=== PATIENT | male | born 1980 | race Caucasian/White ===

== ENCOUNTER 2020-02-26 13:14 | Emergency (ER) | payer SELFPAY ==
[2020-02-26] MEDS ORDERED: Lidocaine 1% 10 ML MDV INJECT ONE (13:48)
--- NOTE | 2020-02-26 13:54 | EDM.PDOC ---
ED HPI GENERAL MEDICAL PROBLEM - General Chief Complaint: Skin Complaint Stated Complaint: STAPH INFECTION Time Seen by Provider: 02/26/20 13:38 Source of Information: Reports: Patient History Limitations: Reports: No Limitations - History of Present Illness INITIAL COMMENTS - FREE TEXT/NARRATIVE: Patient is a 39-year-old male who presents to the emergency department with complaints of a swollen, painful nodule in his left armpit. He states he first noticed it on Sunday and that it has been getting progressively larger and more painful. He has had abscesses in the past but denies a history of MRSA. Denies any fever, chills, nausea, or vomiting. Left Axillary Pain Score (Numeric/FACES): 5 - Related Data Allergies Allergy/AdvReac Type Severity Reaction Status Date / Time No Known Allergies Allergy Verified 02/26/20 13:40 Home Meds: Home Meds Acetaminophen/HYDROcodone [[place] 325-5 MG] 1 tab PO Q4H PRN #10 tablet 02/26/20 [Rx] Doxycycline [Vibramycin] 100 mg PO BID 10 Days #19 cap 02/26/20 [Rx] Past Medical History HEENT History: Reports: None Cardiovascular History: Reports: None Respiratory History: Reports: None Gastrointestinal History: Reports: None Genitourinary History: Reports: None Neurological History: Reports: None Psychiatric History: Reports: None Endocrine/Metabolic History: Reports: Obesity/BMI 30+ Hematologic History: Reports: None Immunologic History: Reports: None Oncologic (Cancer) History: Reports: None Dermatologic History: Reports: None - Infectious Disease History Infectious Disease History: Reports: None - Past Surgical History Musculoskeletal Surgical History: Reports: Other (See Below) Other Musculoskeletal Surgeries/Procedures:: tendon repair to one of pt's ankles. Social & Family History - Tobacco Use Smoking Status *Q: Current Every Day Smoker Years of Tobacco use: 20 Packs/Tins Daily: 1.5 - Caffeine Use Caffeine Use: Reports: Energy Drinks - Recreational Drug Use Recreational Drug Use: No ED ROS GENERAL - Review of Systems Review Of Systems: Comprehensive ROS is negative, except as noted in HPI. ED EXAM, SKIN/RASH Exam: See Below Exam Limited By: No Limitations General Appearance: Alert, WD/WN, No Apparent Distress Respiratory/Chest: No Respiratory Distress, Lungs Clear, Normal Breath Sounds, No Accessory Muscle Use, Chest Non-Tender Cardiovascular: Normal Peripheral Pulses, Regular Rate, Rhythm, No Edema, No Gallop, No JVD, No Murmur, No Rub Neurological: Alert, Oriented, CN II-XII Intact, Normal Cognition, Normal Gait, Normal Reflexes, No Motor/Sensory Deficits Psychiatric: Normal Affect, Normal Mood Skin: Warm, Dry, Intact, Other (4 cm erythematous, tender area of induration to the left axilla. It is firm to palpation. Surrounding tissue is erythematous but does not extend beyond the axilla.) ED SKIN PROCEDURES - I&D Site: left axilla Skin Prep: Providone-Iodine (Betadine) Local Anesthesia: Lidocaine: 1% Plain Local Anesthetic Volume: 5cc Area Incised With: 11 Blade Drainage: Purulent, Bloody, Large Amount Probed to Break Up Loculations: Yes Packed With: 1 in. Iodoform Sterile Dressing: Other (ABD pad) Complications: No Progress/Comments: Large amount of foul-smelling purulent drainage drained. Patient verbalized relief of pain. Course - Vital Signs Last Recorded V/S: Last Vital Signs Temp 97.9 F 02/26/20 13:38 Pulse 100 02/26/20 13:38 Resp 16 02/26/20 13:38 BP 165/101 H 02/26/20 13:38 Pulse Ox 97 02/26/20 13:38 - Orders/Labs/Meds Orders: Active Orders 24 hr Category Date Time Status CULTURE WOUND [RM] Stat Lab 02/26/20 14:10 Received Meds: Medications Discontinued Medications Generic Name Dose Route Start Last Admin Trade Name Rosa PRN Reason Stop Dose Admin Doxycycline Hyclate 100 mg 02/26/20 14:19 02/26/20 14:26 Vibramycin PO 02/26/20 14:20 100 mg ONETIME ONE Administration Lidocaine HCl 10 ml 02/26/20 13:48 02/26/20 13:57 Xylocaine 1% INJECT 02/26/20 13:49 10 ml ONETIME ONE Administration - Re-Assessments/Exams Free Text/Narrative Re-Assessment/Exam: 02/26/20 13:51 Bedside ultrasound performed and does show a hypoechoic area beneath the surface of the skin. I will be to I&D the abscess. See procedure notes. Departure - Departure Time of Disposition: 14:22 Disposition: Home, Self-Care 01 Condition: Fair Clinical Impression: Abscess - Discharge Information *PRESCRIPTION DRUG MONITORING PROGRAM REVIEWED*: No *COPY OF PRESCRIPTION DRUG MONITORING REPORT IN PATIENT CARLOS: No Prescriptions: Acetaminophen/HYDROcodone [[place] 325-5 MG] 1 tab PO Q4H PRN #10 tablet PRN Reason: Pain Doxycycline [Vibramycin] 100 mg PO BID 10 Days #19 cap Instructions: Skin Abscess Referrals: PCP,None [Primary Care Provider] - Forms: ED Department Discharge, ED Return to Work/School Form Additional Instructions: You were seen in the emergency department today for a painful, swollen, abscess in your left armpit. The abscess was surgically drained in the emergency department. Packing has been placed into the wound. Leave this in place for 2 days. After that time you may remove it by pulling on the tail that is hanging out of the wound. Keep the area covered with an absorbent pad as it will likely continue to drain over the next couple days. You been started on an antibiotic, doxycycline. Take this as prescribed. The drainage has been sent for culture. If this should grow out a microbe that is not susceptible to the antibiotic you are on, you will be notified and the medication will be changed. You may take [id number] Tylenol or ibuprofen as needed for pain. For pain not relieved by these measures, a prescription for [place] has been provided. Do not drive, work, or operate heavy machinery for 12 hours after taking this medication. I would like you to follow-up in the clinic early next week to have the wound rechecked. If over the weekend you experience any fever , chills, nausea, vomiting, or worsening of pain or swelling in that area, I would recommend that you return to the emergency department. Sepsis Event Note - Evaluation Sepsis Screening Result: No Definite Risk - Focused Exam Vital Signs: Vital Signs Temp Pulse Resp BP Pulse Ox 02/26/20 13:38 97.9 F 100 16 165/101 H 97 Date Exam was Performed: 02/26/20 Time Exam was Performed: 15:40 - My Orders Last 24 Hours: My Active Orders 02/26/20 14:10 CULTURE WOUND [RM] Stat - Assessment/Plan Last 24 Hours: My Active Orders 02/26/20 14:10 CULTURE WOUND [RM] Stat
[2020-02-26] MEDS ORDERED: Doxycycline 100 MG Cap PO ONE (14:19)
== END 2020-02-26 14:35 | disposition home or self-care (01) ==
LOC: JD.ED 13:14
DX: L02.412 Cutaneous abscess of left axilla (principal); E66.9 Obesity, unspecified; Z68.34 Body mass index [BMI] 34.0-34.9, adult; F17.210 Nicotine dependence, cigarettes, uncomplicated
CPT/HCPCS: 10061; 87070; 99283; A9270; J2001

== ENCOUNTER 2021-01-15 12:16 | Emergency (ER) | payer BC ==
[2021-01-15] MEDS ORDERED: FLU VACC QS2020-21(6MOS UP)/PF 60 MCG/0.5 ML SYRINGE IM ONE (13:00)
--- NOTE | 2021-01-15 13:58 | EDM.PDOC ---
ED HPI GENERAL MEDICAL PROBLEM - General Chief Complaint: Skin Complaint Stated Complaint: L UNDER ARM SKIN COMPLAINT Time Seen by Provider: 01/15/21 13:48 - History of Present Illness INITIAL COMMENTS - FREE TEXT/NARRATIVE: 40-year-old male presents the emergency room with a swollen tender area in his left armpit. Over the last week or so this is been developing skin to the point where it is difficult for him to position his arm because of skin pain in his axilla. Patient had a similar lesion like this drained this last summer. He had pretty good relief after that was done. Patient does not have a family history of th jacki in prior to the episode this last summer has not had any problems like this. The patient has not had any fevers or chills and other than the localized discomfort he has from the area is not having any dysfunction with his arm. Left Axillary Pain Score (Numeric/FACES): 8 - Related Data Allergies Allergy/AdvReac Type Severity Reaction Status Date / Time No Known Allergies Allergy Verified 01/15/21 12:41 Home Meds: Home Meds Acetaminophen/HYDROcodone [[place] 325-5 MG] 1 tab PO Q4H PRN #12 tablet 01/15/21 [Rx] Ibuprofen [Motrin] 200 mg PO QID PRN 01/15/21 [History] Past Medical History HEENT History: Reports: None Cardiovascular History: Reports: None Respiratory History: Reports: None Gastrointestinal History: Reports: None Genitourinary History: Reports: None Neurological History: Reports: None Psychiatric History: Reports: None Endocrine/Metabolic History: Reports: Obesity/BMI 30+ Hematologic History: Reports: None Immunologic History: Reports: None Oncologic (Cancer) History: Reports: None Dermatologic History: Reports: None Other Dermatologic History: cyst - Infectious Disease History Infectious Disease History: Reports: None - Past Surgical History Musculoskeletal Surgical History: Reports: Other (See Below) Other Musculoskeletal Surgeries/Procedures:: tendon repair to one of pt's ankles. Social & Family History - Family History Family Medical History: No Pertinent Family History - Tobacco Use Tobacco Use Status *Q: Current Every Day Tobacco User Years of Tobacco use: 24 Packs/Tins Daily: 1.5 - Caffeine Use Caffeine Use: Reports: Energy Drinks - Recreational Drug Use Recreational Drug Use: No ED ROS GENERAL - Review of Systems Review Of Systems: See Below Constitutional: Reports: No Symptoms. Denies: Fever, Chills Respiratory: Reports: No Symptoms Cardiovascular: Reports: No Symptoms GI/Abdominal: Reports: No Symptoms ED EXAM, SKIN/RASH Exam: See Below Exam Limited By: No Limitations General Appearance: Alert, No Apparent Distress Head: Atraumatic, Normocephalic Neck: Normal Inspection, Supple, Non-Tender, Full Range of Motion Respiratory/Chest: No Respiratory Distress, Lungs Clear, Normal Breath Sounds Cardiovascular: Regular Rate, Rhythm, No Edema, No Murmur Skin: Other (The patient has obvious hidradenitis suppurativa involving the left axilla right axilla appears fairly normal. Left is associated with significant scar tissue formation.) ED SKIN PROCEDURES - I&D Site: Left axilla Skin Prep: Providone-Iodine (Betadine) Local Anesthesia: Lidocaine: 1% Plain Local Anesthetic Volume: Other (8 cc of 1% lidocaine without epinephrine) Area Incised With: 15 Blade Drainage: Purulent, Bloody, Large Amount Probed to Break Up Loculations: Yes Packed With: 1/2 in. Iodoform (Approximately 4-1/2 inches placed inside the abscess cavity) Sterile Dressing: Other (See nursing notes) Complications: No Progress/Comments: 40 cc of saline were used to irrigate inside the abscess cavity. Course - Vital Signs Last Recorded V/S: Last Vital Signs Temp 36.5 C 01/15/21 12:37 Pulse 115 H 01/15/21 12:37 Resp 20 01/15/21 12:37 BP 160/95 H 01/15/21 12:37 Pulse Ox 92 L 01/15/21 12:37 - Orders/Labs/Meds Orders: Active Orders 24 hr Category Date Time Status Influenza Vaccine Charge [RC] .DISCHARGE Care 01/15/21 12:44 Active Meds: Medications Discontinued Medications Generic Name Dose Route Start Last Admin Trade Name Freq PRN Reason Stop Dose Admin Influenza Virus Vaccine 1 each 01/15/21 12:44 Pharmacy To Dose - Influenza Vaccine IM 01/15/21 12:45 ONETIME ONE Influenza Virus Vaccine 60 mcg 01/15/21 13:00 01/15/21 14:15 Fluzone Quad [id number] Syringe IM 01/15/21 13:01 60 mcg .ONCE ONE Administration Lidocaine HCl 10 ml 01/15/21 14:05 01/15/21 14:17 Xylocaine 1% INJECT 01/15/21 14:06 10 ml ONETIME ONE Administration Lidocaine HCl Confirm 01/15/21 14:06 01/15/21 14:15 Xylocaine 1% Administered 01/15/21 14:07 Not Given Dose 10 ml .ROUTE .STK-MED ONE - Re-Assessments/Exams Free Text/Narrative Re-Assessment/Exam: 01/15/21 14:47 Prior to I&D of the area I discussed the situation with Dr. Yang. Her recommendation was to do the I&D, pack it well, hold off on antibiotics. She would like to see him in the office on Sunday or Sunday. We instructed the patient on how to do the dressing changes he is to do this twice daily preferably in the shower let water run over the area and then we showed him how to repack it. If needed he can return to the emergency room for assistance on packing. Discharged with a single bottle of iodoform gauze half-inch. Departure - Departure Time of Disposition: 14:53 Disposition: Home, Self-Care 01 Clinical Impression: Abscess of left axilla, Hidradenitis suppurativa of left axilla - Discharge Information *PRESCRIPTION DRUG MONITORING PROGRAM REVIEWED*: Yes *COPY OF PRESCRIPTION DRUG MONITORING REPORT IN PATIENT CARLOS: Not Applicable Referrals: PCP,None [Primary Care Provider] - Ana Donaldson MD [Physician] - Forms: ED Department Discharge Additional Instructions: Return to the emergency room with any questions problems or worsening symptoms. Do the dressing changes as we discussed. Is probably best to remove the dressing in the shower. Do this twice daily including the wound packing. If you having difficulty with this return to the emergency room we can assist you with this. Follow-up with Dr. Yang at the [facility] on Sunday or Sunday call her clinic first thing Sunday morning to have this set up. Sepsis Event Note (ED) - Evaluation Sepsis Screening Result: No Definite Risk - Focused Exam Vital Signs: Vital Signs Temp Pulse Resp BP Pulse Ox 01/15/21 12:37 36.5 C 115 H 20 160/95 H 92 L - My Orders Last 24 Hours: My Active Orders 01/15/21 12:44 Influenza Vaccine Charge [RC] .DISCHARGE - Assessment/Plan Last 24 Hours: My Active Orders 01/15/21 12:44 Influenza Vaccine Charge [RC] .DISCHARGE
[2021-01-15] MEDS ORDERED: Lidocaine 1% 10 ML MDV INJECT ONE (14:05)
[2021-01-15] MEDS ORDERED: Lidocaine 1% 10 ML MDV ONE (14:06)
== END 2021-01-15 15:27 | disposition home or self-care (01) ==
LOC: JD.ED 12:16
DX: L02.412 Cutaneous abscess of left axilla (principal); L73.2 Hidradenitis suppurativa; E66.9 Obesity, unspecified; Z68.32 Body mass index [BMI] 32.0-32.9, adult; Z72.0 Tobacco use; Z23 Encounter for immunization
CPT/HCPCS: 10060; 10061; 87070; 87186; 90686; 99283; 99283-25; G0008

== ENCOUNTER 2021-02-20 14:27 | Emergency (ER) | payer BC ==
--- NOTE | 2021-02-20 15:23 | EDM.PDOC ---
ED HPI GENERAL MEDICAL PROBLEM - General Chief Complaint: Lower Extremity Injury/Pain Stated Complaint: L FOOT INJURY Time Seen by Provider: 02/20/21 14:36 Source of Information: Reports: Patient History Limitations: Reports: No Limitations - History of Present Illness INITIAL COMMENTS - FREE TEXT/NARRATIVE: 40-year-old male presents to the emergency department today with a left foot injury. The patient states he was playing with his nephew on a [id number] when he stepped off and felt a pop in the dorsal aspect of his left foot. Patient states he did not injure his ankle and the only pain noted is in the dorsal aspect of the foot. Patient has not had any previous injury in this area. The patient was able to ambulate after the injury however he states that it is very painful to touch. Left Foot Pain Score (Numeric/FACES): 5 - Related Data Allergies Allergy/AdvReac Type Severity Reaction Status Date / Time No Known Allergies Allergy Verified 02/20/21 14:38 Home Meds: Home Meds Acetaminophen/HYDROcodone [[place] 325-5 MG] 1 tab PO Q4H PRN #12 tablet 01/15/21 [Rx] Ibuprofen [Motrin] 200 mg PO QID PRN 01/15/21 [History] Doxycycline [Vibramycin] 1 tab PO BID 02/20/21 [History] Past Medical History HEENT History: Reports: None Cardiovascular History: Reports: None Respiratory History: Reports: None Gastrointestinal History: Reports: None Genitourinary History: Reports: None Neurological History: Reports: None Psychiatric History: Reports: None Endocrine/Metabolic History: Reports: Obesity/BMI 30+ Hematologic History: Reports: None Immunologic History: Reports: None Oncologic (Cancer) History: Reports: None Dermatologic History: Reports: None Other Dermatologic History: cyst - Infectious Disease History Infectious Disease History: Reports: None - Past Surgical History Musculoskeletal Surgical History: Reports: Other (See Below) Other Musculoskeletal Surgeries/Procedures:: tendon repair to one of pt's ankles. Social & Family History - Family History Family Medical History: No Pertinent Family History - Tobacco Use Tobacco Use Status *Q: Current Every Day Tobacco User Years of Tobacco use: 20 Packs/Tins Daily: 1 - Caffeine Use Caffeine Use: Reports: Energy Drinks - Recreational Drug Use Recreational Drug Use: No Review of Systems - Review of Systems Review Of Systems: Comprehensive ROS is negative, except as noted in HPI. ED EXAM, GENERAL - Physical Exam Exam: See Below Exam Limited By: No Limitations General Appearance: Alert, WD/WN, No Apparent Distress Ears: Normal External Exam, Hearing Grossly Normal Nose: Normal Inspection, Normal Mucosa, No Blood Throat/Mouth: Normal Inspection, Normal Lips, Normal Voice, No Airway Compromise Head: Atraumatic, Normocephalic Neck: Normal Inspection, Supple, Non-Tender, Full Range of Motion Respiratory/Chest: No Respiratory Distress, No Accessory Muscle Use Cardiovascular: Normal Peripheral Pulses. No: No Edema (Left dorsal aspect of left foot edema) Peripheral Pulses: 2+: Dorsalis Pedis (L), Dorsalis Pedis (R) GI/Abdominal: No Distention (Male) Exam: Deferred Rectal (Males) Exam: Deferred Back Exam: Normal Inspection Extremities: Normal Range of Motion, Normal Capillary Refill. No: Normal Inspection, Non-Tender (Dorsal aspect of the left foot), No Pedal Edema (Ecchymosis and edema noted to the dorsal aspect of the left foot) Neurological: Alert, Oriented, Normal Cognition Psychiatric: Normal Affect, Normal Mood Skin Exam: Warm, Dry, Intact, No Rash, Other (Edema and bruising noted to the dorsal aspect of the left foot) Lymphatic: No Adenopathy Course - Vital Signs Text/Narrative:: Upon assessment patient does not have any tibial or ankle tenderness. No tenderness noted at the distal fifth metatarsal however there is area of bruising noted to the dorsal aspect of his left foot. There is also swelling noted and patient states this is exquisitely tender to touch. I have ordered an x-ray of the left foot. Last Recorded V/S: Last Vital Signs Temp 97.0 F 02/20/21 14:36 Pulse 95 02/20/21 14:36 Resp 20 02/20/21 14:36 BP 141/90 H 02/20/21 14:36 Pulse Ox 95 02/20/21 14:36 - Orders/Labs/Meds Orders: Active Orders 24 hr Category Date Time Status Foot Comp Min 3V Lt [CR] Stat Exams 02/20/21 15:01 Taken - Re-Assessments/Exams Free Text/Narrative Re-Assessment/Exam: 02/20/21 15:58 Nothing acute is appreciated on left foot xray by myself or Dr. Pimentel. Pt will be discharged to home. Departure - Departure Time of Disposition: 15:59 Disposition: Home, Self-Care 01 Condition: Good Clinical Impression: Injury of left foot Qualifiers: Encounter type: initial encounter Qualified Code(s): S99.922A - Unspecified injury of left foot, initial encounter - Discharge Information Referrals: PCP,None [Primary Care Provider] - Forms: ED Department Discharge Additional Instructions: You were seen in the emergency department today with complaints of injury of your left foot just prior to arrival. X-rays were completed and there does not appear to be any fractures. Go home, rest, ice the left foot 30 minutes at a time every 3 hours while awake, keep it elevated as much as possible. Take Tylenol 650 mg every 4 hours as needed for pain or ibuprofen 600 mg every 6-8 hours as needed. Your left foot will likely be more sore for the next 48 hours and then the swelling and discomfort should resolve. If it is not better by the end of this week recommend you follow-up with your primary care physician for reevaluation. Sepsis Event Note (ED) - Evaluation Sepsis Screening Result: No Definite Risk - Focused Exam Vital Signs: Vital Signs Temp Pulse Resp BP Pulse Ox 02/20/21 14:36 97.0 F 95 20 141/90 H 95 - My Orders Last 24 Hours: My Active Orders 02/20/21 15:01 Foot Comp Min 3V Lt [CR] Stat - Assessment/Plan Last 24 Hours: My Active Orders 02/20/21 15:01 Foot Comp Min 3V Lt [CR] Stat
--- NOTE | 2021-02-21 11:51 | CR ---
Left foot: 4 views of left foot were obtained. Comparison: No previous foot study is available. Joint spaces are preserved. Slight bony density is seen off the corner base of the second metatarsal. Difficult to exclude a minimal fracture. No additional fracture or other abnormality is appreciated. Impression: 1. Possible small fracture involving the corner base of the second metatarsal. 2. Left foot study is otherwise unremarkable. Diagnostic code #3
== END 2021-02-20 16:50 | disposition home or self-care (01) ==
LOC: JD.ED 14:27
DX: S90.32XA Contusion of left foot, initial encounter (principal); E66.9 Obesity, unspecified; Z68.32 Body mass index [BMI] 32.0-32.9, adult; X58.XXXA Exposure to other specified factors, initial encounter
CPT/HCPCS: 73630-26-LT; 73630-LT; 99283; 99283-25

== ENCOUNTER 2023-09-12 17:17 | Emergency (ER) | payer BC ==
[2023-09-12] MEDS ORDERED: HYDROmorphone 1 MG/ML Syringe IM ONE (18:18)
[2023-09-12] MEDS ORDERED: Naloxone 0.4 MG/ML SDV IVPUSH PRN (18:18)
[2023-09-12] MEDS ORDERED: Doxycycline 100 MG in Sodium Chloride 0.9% 100 ML IV ONE (18:34)
[2023-09-12 18:56] LABS: BASOPHILS ABSOLUTE AUTO 0.1 K/mm3 (0.0-0.2); BASOPHILS PERCENT AUTO 0.6 % (0.0-1.0); EOSINOPHILS ABSOLUTE AUTO 0.2 K/mm3 (0.0-0.4); EOSINOPHILS PERCENT AUTO 1.2 % (0.0-6.0); HEMATOCRIT 44.5 % (42.0-52.0); HEMOGLOBIN 15.2 gm/dl (14.0-18.0); IMMATURE GRAN ABSOLUTE AUTO 0.03 K/mm3 (0.00-0.05); IMMATURE GRAN PERCENT AUTO 0.2 % (0.0-0.4); LYMPHOCYTES ABSOLUTE AUTO 1.8 K/mm3 (1.0-4.8); LYMPHOCYTES PERCENT AUTO 14.5 % (24.0-44.0); MEAN CORPUSCULAR HEMOGLOBIN 33.7 pg (28.0-32.0); MEAN CORPUSCULAR HGB CONC 34.2 g/dl (32.0-36.0); MEAN CORPUSCULAR VOLUME 98.7 fl (83.0-99.0); MEAN PLATELET VOLUME 9.1 fl (9.4-12.4); MONOCYTES ABSOLUTE AUTO 1.3 K/mm3 (0.0-0.8); MONOCYTES PERCENT AUTO 10.5 % (0.0-8.0); NEUTROPHILS ABSOLUTE AUTO 8.8 K/mm3 (1.8-7.7); PLATELET COUNT,PLT 358 K/mm3 (150-400); RED BLOOD CELL COUNT 4.51 M/mm3 (4.52-5.90); WHITE BLOOD CELL COUNT,WBC 12.05 K/mm3 (3.9-11.3)
[2023-09-12 19:36] LABS: A/G RATIO 1.1 (1-2); ALBUMIN 3.4 g/dl (3.4-5.0); ANION GAP 14.4 (5-15); BILIRUBIN TOTAL 0.2 mg/dL (0.2-1.0); BUN/CREATININE RATIO 15.6 (14-18); C-REACTIVE PROTEIN 4.7 mg/dL (<1.0); CREATININE 0.9 mg/dL (0.7-1.3); EST CRCL DRUG DOSING (CG) 127.25 mL/min; POTASSIUM,K 4.4 mEq/L (3.5-5.1); PROTEIN TOTAL,TP 6.6 g/dl (6.4-8.2)
[2023-09-12] MEDS ORDERED: Ketorolac 30 MG/ML SDV IVPUSH ONE (20:15)
== END 2023-09-12 20:55 | disposition home or self-care (01) ==
LOC: JD.ED 17:17
DX: L73.2 Hidradenitis suppurativa (principal); R79.82 Elevated C-reactive protein (CRP); E66.9 Obesity, unspecified; Z68.35 Body mass index [BMI] 35.0-35.9, adult
CPT/HCPCS: 36415; 80053; 80143; 85025; 86140; 96365; 96375; 99282; J1885; J3490; 99283